=== PATIENT | male | born 1975 | race Caucasian/White ===

== ENCOUNTER 2016-03-11 12:04 | Day surgery (SDC) | payer OTHER ==
[~2016-03-11] VITALS: Ht 185.4 cm; Wt 137.0 kg
--- NOTE | 2016-03-11 08:35 | PCM.HPANE ---
Patient Data Surgeon Admitting Provider: Attending Provider:Jacob Veronica MD Primary Care Physician:Jerri Johansen MD Other Provider:[facility] Reason for Visit Gerd, Abdominal Pain, Change In Bowel Movement Ht/WT & BMI Body Mass Index Allergies Coded Allergies: Oyster (Verified Allergy, Severe, SOB rash, 03/11/16) hydrocodone (Verified Allergy, Severe, severe nausea , 03/11/16) latex (Verified Allergy, Mild, rash, 03/11/16) Past Anesthesia History Anesthesia History: Positive for:: Anesthesia Reactions (NAUSEA), Denies:: Malignant Hyperthermia Diabetes History Hx Diabetes?: No MRSA MRSA: No Medications Reported Medications Aspirin 81 Mg Lllegr92 Mg PO HS Ref 0 01/08/16 Cholecalciferol (Vitamin D3) (Vitamin D3)2,000 Unit Capsule2,000 Unit PO HS 01/08/16 Atenolol 25 Mg Rtmjzv38 Mg PO DAILY #30 TABLET Ref 0 01/08/[address] (Protonix)40 Mg Drufsd71 Mg PO DAILY Ref 0 11/28/14 Clopidogrel Bisulfate (Plavix)75 Mg Fkitci23 Mg PO HS 30 Days Ref 0 11/28/14 Nitroglycerin SL (Nitrostat)0.4 Mg Tab.subl0.4 Mg SL Q5MIN PRN For Chest Pain # 1 BOTTLE 11/26/14 Lisinopril (Zestril)10 Mg Yzrmif25 Mg PO HS 30 Days Ref 0 11/26/14 Bupropion ER 150 Mg Tablet.er150 Mg PO HS Ref 0 11/26/14 Atorvastatin (Lipitor)40 Mg Uothfx28 Mg PO HS Ref 0 11/26/14 Allopurinol 300 Mg Ogbone091 Mg PO HS Ref 0 11/26/14 History History of ENT Problems?: Yes HEENT History: Denies:: Cataracts Dysphagia Sinus Problem (RHINOPLASTY; NASAL SURGERY 4-5 YRS. AGO) Hx of Heart Problems?: Yes Cardiovascular History: Positive for:: Cardiac Surgery (STENT PLACEMENT 2014) Chest Pain Hypertension Irregular Heartbeat (SOMETIMES) Thrombophlebitis Denies:: Congestive Heart Failure Edema Heart Murmur Pacemaker Hx of Respiratory Problem?: No Respiratory History: Positive for:: Dyspnea Pneumonia Use of C-PAP Machine (ESTELA+ SLEEP STUDY 10/2008) Denies:: Asthma COPD Chest Surgery Emphysema Hemoptysis Tuberculosis Hx Neurologic Problems?: Yes Neurological History: Positive for:: Dizziness Headaches Denies:: Alzheimer's Disease CVA Dementia Parkinson's Disease Seizures Hx of GI Problems?: Yes Gastrointestinal History: Positive for:: Gastroesphageal Reflux Heartburn Hiatal Hernia Denies:: Diverticulitis Gastrointestinal Bleeding Hepatitis Rectal Bleeding Hx of Problems?: No Genitourinary History: Denies:: HX of Hemodialysis Kidney Stones Urinary Tract Infection HX of Peritoneal Dialysis: No Male Hx: Denies:: Prostate Problems Scrotal Mass Testicular Surgery Skin History: Positive for:: History Skin Disorders? (ECZEMA) Denies:: Pressure Ulcers Hx Musculoskeletal Problems?: Yes Musculoskeletal History: Positive for:: Back Injury (LOWER BACK) Musculoskeletal Trauma (BROKEN BACK) Denies:: Joint Replacement Hx of Psycho/Social Problems?: Yes Psycho Social History: Positive for:: Anxiety Bipolar Disorder Denies:: Hx Depression Suicide Attempt Hx Surgeries?: Yes (SHOULDER, SINUS PROBLEMS, HERNIA) Hx Any Other Health Problems?: Yes Other History: Positive for:: Hospitalization (HEART CATH) Denies:: Cancer Endocrine Disease Thyroid Disease History Blood Transfusions: Denies:: Blood Transfuse Reaction Blood Transfusions Hx Diabetes: No Hx Alcohol Use: Yes ("sometimes")Hx Substance Use: No Smoking Status: Never Smoker Have You Smoked inLast 12 mo: No Stop/Bang Risk Assessment Category Category 1A: Patient has history of documented sleep apnea, and HAS NOT received any narcotic, sedative or anesthesia administration during this stay. Category 1B: Patient has history of documented sleep apnea, and HAS received any narcotic , sedative or anesthesia administration during this stay Category 2: Patient has SUSPECTED Obstructive Sleep Apnea, and HAS received any narcotic , sedative or anesthesia administration during this stay. Category 3: Patient has SUSPECTED Obstructive Sleep Apnea and HAS NOT received narcotic, sedative or anesthesia administration during this stay. Category 4: Outpatient in Procedural Areas with known sleep apnea or who screen positive for High Risk via the STOP/BANG questionnaire. Exam Exam General Appearance: Alert, Oriented X3, Cooperative, No Acute Distress HEENT/AIRWAY: MP 1 Lungs: Normal Air Movement Heart: Regular Rate/Rhythm Plan Impression Patient chart reviewed, patient interviewed and anesthestic plan with risks, benefits, and alternatives discussed, and informed consent obtained. NPO Status: GREATER THAN 8 HOURS FOR SOLIDS AND LIQUIDS ASA Physical Status: ASA3 Severe Disease Anesthetic Plan: MAC Bene/Risks/Altern/Consents: Yes HP Complete Prior to Induction: Yes Pallavi Mishra DO Mar 11, 2016 08:35
[~2016-03-11 12:04] MED LIST: ALLO300T2 PO; ASPI-973 PO; ATEN25TA PO; BUPR150T12 PO; CHOL200047 PO; CLOP75TA3 PO; LIP40 PO; LISI-610 PO; Lactated Ringer's 1,000 ML IV ONE; NITR0.4T SL; PANT40TA2 PO
[2016-03-11] MEDS ORDERED: Propofol 10,000 mCg/mL 20 mL Inj ONE (12:05)
[2016-03-11 12:27] VITALS: BP 128/82; PULSE 68; RESP 14; O2SAT 94
[2016-03-11 13:45] VITALS: BP 127/78; PULSE 78; RESP 14; O2SAT 97
--- NOTE | 2016-03-11 13:49 | PCM.ANEP2 ---
Post Anesthesia Evaluation ASA/CMS Post Anesthesia VS in Patient's Normal Range?: Yes Resp Stable; Airway Patent?: Yes CV Function & Hydration Stable: Yes Mental Status Recovered?: Yes Pain control Satisfactory?: Yes N/V Control Satisfactory?: Yes Pallavi Mishra DO Mar 11, 2016 13:49
--- NOTE | 2016-03-11 13:49 | PCM.ANEP1 ---
Post Anesthesia Phase 1 PACU Phase 1 Assessment Vital Signs Vital Signs Date Time Temp Pulse Resp B/P Pulse Ox O2 Delivery O2 Flow Rate FiO2 03/11/16 12:27 36.5 68 14 128/82 94 Room Air Anesthetic Administered: MAC Level of Alertness: Sleepy, easy to arouse ECKERT's with Equal Strength: Yes Pain: No Nausea or Vomiting: No Oxygen Delivery: Room Air Lungs: Normal Air Movement Pallavi Mishra DO Mar 11, 2016 13:49
[2016-03-11 13:55] VITALS: BP 124/81; PULSE 77; RESP 14; O2SAT 98
[2016-03-11 14:05] VITALS: BP 121/71; PULSE 78; RESP 14; O2SAT 94
[2016-03-11 14:15] VITALS: BP 118/77; PULSE 80; RESP 14; O2SAT 95
[2016-03-11 14:21] VITALS: BP 113/76; PULSE 76; RESP 14; O2SAT 99
--- NOTE | 2016-03-11 15:01 | ENDO ---
[address] [address] ENDOSCOPY PROCEDURE PATIENT: MIKI SAMUEL : 1975 MR#: [id number] ADMIT: 03/11/2016 JOB ID: [id number] DATE: 03/11/2016 PRIMARY CARE PHYSICIAN: Jerri Johansen MD PROCEDURES: 1. Esophagogastroduodenoscopy. 2. Colonoscopy. INDICATION: The patient is a 41-year-old man with both a longstanding history of GERD and recent trouble with abdominal pain and change in his bowel habits. He is referred to me for both upper and lower endoscopy. By the time he saw me, some of his symptoms were improving but he still strongly desired to proceed with endoscopy. EQUIPMENT: 1. GIF H 180 J. 2. PCF H 180 AL. SEDATION: Monitored anesthesia care was provided by anesthesiologist. Preparation quality for the colonoscopy was good. COMPLICATIONS: None identified. PROCEDURE INFORMATION: The patient was brought into the endoscopy suite and placed in the left lateral decubitus position. Sedation was achieved by the anesthesiologist provided. I began with the upper endoscopy. The scope was introduced through the mouth and directed down through the oropharynx into the esophagus and down into the stomach and duodenum under direct visualization. The scope was then slowly withdrawn examining the mucosa for any defects or polyps. Retroflexed views were obtained in the stomach. The flap valve was grade 3. The GE junction was at 43 cm. The Z-line was regular. The scope was then completely withdrawn. The patient was then rotated and the colonoscopy was begun. Digital rectal examination was unremarkable. The scope was then inserted through the anus and advanced under direct visualization through to the cecum. The ileocecal valve as well as the appendiceal orifice were both identified and photographed. The ileocecal valve was intubated and the terminal ileum inspected. The scope was then slowly withdrawn examining the mucosa for any defects or polyps. Quality of the prep was good. Retroflexed views were obtained in the rectum. The entire procedure was well tolerated without evidence of complication. FINDINGS: 1. Normal esophagogastroduodenoscopy. 2. Normal colonoscopy. RECOMMENDATIONS: The patient can begin screening colonoscopy at age 50.
== END 2016-03-11 23:59 | disposition home or self-care (01) ==
LOC: END 12:04
PROVIDERS: ATTEND General Practice
DX: R19.4 Change in bowel habit (principal); K21.9 Gastro-esophageal reflux disease without esophagitis; R10.9 Unspecified abdominal pain; I10 Essential (primary) hypertension; I25.10 Atherosclerotic heart disease of native coronary artery without angina pectoris; F41.9 Anxiety disorder, unspecified; G47.33 Obstructive sleep apnea (adult) (pediatric); G25.81 Restless legs syndrome; Z95.5 Presence of coronary angioplasty implant and graft; Z79.82 Long term (current) use of aspirin; Z79.02 Long term (current) use of antithrombotics/antiplatelets
CPT/HCPCS: 43235; 45378; J2250; J7120